=== PATIENT | female | born 1940 | race Hispanic/Latino ===

== ENCOUNTER 2017-07-17 06:32 | Day surgery (SDC) | payer OTHER ==
[~2017-07-17] VITALS: Ht 149.9 cm; Wt 62.3 kg
[2017-07-17 07:05] VITALS: BP 112/58
[2017-07-17 07:05] LABS: INR 1.09 (0.85-1.15); PROTHROMBIN TIME 11.4 SEC (9.6-11.6)
[2017-07-17] MEDS ORDERED: CALC300T31 PO (07:38)
[2017-07-17] MEDS ORDERED: DIGO125T87 PO (07:38)
[2017-07-17] MEDS ORDERED: ATOR10TA69 PO (07:38)
[2017-07-17] MEDS ORDERED: FURO20TA4 PO (07:38)
[2017-07-17] MEDS ORDERED: PIOG30TA70 PO (07:38)
[2017-07-17] MEDS ORDERED: WARF4TAB41 PO (07:38)
[2017-07-17] MEDS ORDERED: SITA100T12 PO (07:38)
[2017-07-17] MEDS ORDERED: CARV12.511 PO (07:38)
[2017-07-17] MEDS ORDERED: PANT40TA PO (07:38)
[2017-07-17] MEDS ORDERED: ENOX100D4 SQ (07:38)
[2017-07-17] MEDS ORDERED: LISI-613 PO (07:38)
[2017-07-17] MEDS ORDERED: GLIP10TA9 PO (07:38)
[2017-07-17] MEDS ORDERED: METF-805 PO (07:38)
[2017-07-17] MEDS ORDERED: XALA2.5OS OD (07:38)
[2017-07-17] MEDS ORDERED: PROPOFOL 1000 MG/100 ML 100 ML IV ONE (09:14)
[2017-07-17 09:30] VITALS: BP 81/43
== END 2017-07-17 10:15 ==
LOC: ENDO 06:32 → DAH 06:32 → ENDO 10:15
PROVIDERS: ATTEND Internal Medicine Gastroenterology
DX: Z12.11 Encounter for screening for malignant neoplasm of colon (principal); D12.2 Benign neoplasm of ascending colon; D12.3 Benign neoplasm of transverse colon; K57.30 Diverticulosis of large intestine without perforation or abscess without bleeding; Z79.899 Other long term (current) drug therapy; K21.9 Gastro-esophageal reflux disease without esophagitis; I10 Essential (primary) hypertension; E78.5 Hyperlipidemia, unspecified; Z95.0 Presence of cardiac pacemaker; E11.9 Type 2 diabetes mellitus without complications; Z68.27 Body mass index [BMI] 27.0-27.9, adult; Z83.3 Family history of diabetes mellitus; Z79.01 Long term (current) use of anticoagulants
CPT/HCPCS: 36415; 45380; 45385; 82948 ×2; 85610; 88305; 93005; A4606; J2704

== ENCOUNTER 2018-04-30 05:35 | Day surgery (SDC) | payer OTHER ==
[2018-04-26 08:43] LABS: BASOPHILS % (AUTO) 0.4 % (0.0-5.0); HEMATOCRIT 33.8 % (36-48); LYMPHOCYTES % (AUTO) 17.3 % (21.0-51.0); MEAN CORPUSCULAR HEMOGLOBIN 30.7 pg (27.0-33.0); MEAN CORPUSCULAR HGB CONC 33.1 g/dL (32.0-36.0); MEAN CORPUSCULAR VOLUME 92.9 fL (79-99); MONOCYTES % (AUTO) 7.8 % (3.0-13.0); NEUTROPHILS % (AUTO) 72.5 % (40.0-77.0); PLATELET COUNT (AUTO) 228 K/uL (130-400); RED BLOOD CELL COUNT(AUTO) 3.64 MIL/uL (4.00-5.50); RED CELL DISTRIBUTION WIDTH 13.7 % (11.0-15.5); WHITE BLOOD COUNT (AUTO) 6.1 K/uL (4.8-10.8)
[2018-04-26 08:45] VITALS: BP 115/63
[2018-04-26 08:49] LABS: POTASSIUM 4.7 mmol/L (3.5-5.1)
[2018-04-26 09:05] LABS: INR 2.6 (0.85-1.15); PARTIAL THROMBOPLASTIN TIME 41.1 SEC (26.3-35.5); PROTHROMBIN TIME 26.8 SEC (9.6-11.6)
--- NOTE | 2018-04-29 10:45 | NUR ---
ABNORMAL LABS WILIAM BHANDARI NOTIFIED PT'S PT 26.8, INR 2.60, PTT 41.1. ORDERS TO REPEAT INR UPON ARRIVAL TO DAY PATIENT DOS.
[2018-04-30] VITALS (11 sets, daily range): BP systolic 108–118; BP diastolic 58–72
[~2018-04-30] VITALS: Ht 149.9 cm; Wt 61.7 kg
[~2018-04-30 05:35] MED LIST: ATOR10TA69 PO; BRIM10DR16 OP; CARV12.511 PO; CEFAZOLIN SODIUM 1 GM VIAL IVP SCH; DIGO125T87 PO; FERR-82 PO; FURO20TA4 PO; GLIP10TA9 PO; LISI-613 PO; METF-805 PO; PANT40TA PO; PIOG30TA70 PO; SITA100T12 PO; SODIUM CHLORIDE 0.9% 1000ML 1,000 ML IV SCH; WARF4TAB41 PO; XALA2.5OS OD
[2018-04-30 06:33] LABS: INR 1.23 (0.85-1.15); PROTHROMBIN TIME 12.9 SEC (9.6-11.6)
[2018-04-30] MEDS ORDERED: CEFAZOLIN SODIUM 1 GM VIAL ONE (07:15)
[2018-04-30] MEDS ORDERED: BUPIVACAINE/PF 0.25% 10ML VIAL IJ ONE (07:16)
[2018-04-30] MEDS ORDERED: LIDOCAINE HCL 1% MDV 50ML VIAL ONE (07:16)
[2018-04-30] MEDS ORDERED: MEPERIDINE-PF 25 MG/ML SYG ONE ×2 (07:32→07:48)
[2018-04-30] MEDS ORDERED: MIDAZOLAM HCL 1 MG/ML 2ML VIAL ONE ×2 (07:32→07:48)
[2018-04-30] MEDS ORDERED: ACETAMINOPHEN 325 MG TAB PO PRN (08:45)
[2018-04-30] MEDS ORDERED: ACETAMINOPHEN-CODEINE 300/30MG TAB PO PRN (08:45)
[2018-04-30] MEDS ORDERED: DEXTROSE 50%-WATER 50 ML DISP.SYRIN IV PRN (08:45)
[2018-04-30] MEDS ORDERED: GLUCAGON 1MG KIT 1 MG ML IM PRN (08:45)
[2018-04-30] MEDS ORDERED: INSULIN HUMULIN R 100 UNIT/ML 3ML SQ SCH (11:30)
[2018-04-30] MEDS ORDERED: CEFAZOLIN SODIUM 1 GM VIAL IVP SCH (13:45)
--- NOTE | 2018-04-30 14:00 | NUR ---
PRESSURE DRESSING REMOVED, MINIMAL DRAINAGE ON DRESSING. SITE SOFT LITTLE TENDERNESS. EDUCATION ON SITE CARE GIVEN.
== END 2018-04-30 14:15 | disposition home or self-care (01) ==
LOC: DAH 05:35
PROVIDERS: ATTEND Internal Medicine Cardiovascular Disease
DX: Z45.2 Encounter for adjustment and management of vascular access device (principal); I48.0 Paroxysmal atrial fibrillation; Z79.01 Long term (current) use of anticoagulants; E78.5 Hyperlipidemia, unspecified; E11.9 Type 2 diabetes mellitus without complications; Z98.890 Other specified postprocedural states; Z79.899 Other long term (current) drug therapy; Z90.710 Acquired absence of both cervix and uterus; I44.7 Left bundle-branch block, unspecified; I50.42 Chronic combined systolic (congestive) and diastolic (congestive) heart failure
CPT/HCPCS: 33264; 36415 ×2; 80048; 80162; 82948; 85025; 85610 ×2; 85730; 93005; A4606; C1882; J0690 ×2; J2175 ×2; J2250 ×2; J3490 ×2; J7030; 99156; 99157

== ENCOUNTER → 2021-12-26 | Outpatient (CLI) | payer OTHER ==
[~2021-12-26] MED LIST changes: -CEFAZOLIN SODIUM 1 GM VIAL IVP SCH; +DIGO125T71 PO; -DIGO125T87 PO; -LISI-613 PO; +LISI20TA24 PO; -METF-805 PO; +METF-890 PO; -SODIUM CHLORIDE 0.9% 1000ML 1,000 ML IV SCH
== END | disposition home or self-care (01) ==
LOC: LAB 09:06
PROVIDERS: ATTEND Physician Assistant
DX: I48.0 Paroxysmal atrial fibrillation (principal); E78.5 Hyperlipidemia, unspecified
CPT/HCPCS: 36415; 80162

== ENCOUNTER → 2022-07-03 | Outpatient (CLI) | payer OTHER ==
[~2022-07-03] MED LIST changes: +APIX2.5T PO; -ATOR10TA69 PO; +CALC500T13 PO; +GABA-529 PO; +LIPITOR PO; +METF-444 PO; -METF-890 PO; +MULT-1258 PO; -PIOG30TA70 PO; +VITAMIN PO; -WARF4TAB41 PO
[2022-07-03 12:46] LABS: CREATININE 1.2 mg/dL (0.5-1.5)
[2022-07-03 13:07] LABS: POTASSIUM 4.6 mmol/L (3.5-5.1)
== END | disposition home or self-care (01) ==
LOC: LAB 11:05
PROVIDERS: ATTEND Internal Medicine Cardiovascular Disease
DX: I42.0 Dilated cardiomyopathy (principal)
CPT/HCPCS: 36415; 80048

== ENCOUNTER → 2022-07-20 | Outpatient (CLI) | payer OTHER ==
[2022-07-20 12:15] LABS: CREATININE 1.1 mg/dL (0.5-1.5); POTASSIUM 4.1 mmol/L (3.5-5.1)
== END | disposition home or self-care (01) ==
LOC: LAB 10:18
PROVIDERS: ATTEND Internal Medicine Cardiovascular Disease
DX: I42.0 Dilated cardiomyopathy (principal)
CPT/HCPCS: 36415; 80048

== ENCOUNTER 2022-12-02 17:18 | Observation (INO) | payer OTHER ==
[~2022-12-02] VITALS: Ht 149.9 cm; Wt 54.3 kg
[2022-12-02 17:58] LABS: BASOPHILS # (AUTO) 0.03 K/uL (0.00-0.20); BASOPHILS % (AUTO) 0.5 % (0.0-5.0); EOSINOPHILS # (AUTO) 0.12 K/uL (0.00-0.70); EOSINOPHILS % (AUTO) 1.9 % (0.0-8.0); HEMATOCRIT 30.8 % (36-48); IMMATURE GRANULOCYTE ABSOLUTE 0.02 K/uL (0-1); LYMPHOCYTES # (AUTO) 1.6 K/uL (1.0-4.8); LYMPHOCYTES % (AUTO) 24.4 % (21.0-51.0); MEAN CORPUSCULAR HEMOGLOBIN 29.7 pg (27.0-33.0); MEAN CORPUSCULAR HGB CONC 32.1 g/dL (32.0-36.0); MEAN CORPUSCULAR VOLUME 92.5 fL (79-99); MONOCYTES # (AUTO) 0.7 K/uL (0.1-1.0); MONOCYTES % (AUTO) 10.5 % (3.0-13.0); NEUTROPHILS % (AUTO) 62.4 % (40.0-77.0); PLATELET COUNT (AUTO) 238 K/uL (130-400); RED BLOOD CELL COUNT(AUTO) 3.33 MIL/uL (4.00-5.50); RED CELL DISTRIBUTION WIDTH 13.5 % (11.0-15.5); WHITE BLOOD COUNT (AUTO) 6.4 K/uL (4.8-10.8)
[2022-12-02 18:05] LABS: POTASSIUM 4.3 mmol/L (3.5-5.1)
[2022-12-02 18:15] LABS: ALBUMIN 3.6 g/dL (3.5-5.0); BILIRUBIN,TOTAL 0.2 mg/dL (0.2-1.0); TOTAL PROTEIN, SERUM 7.2 g/dL (6.0-8.3)
[2022-12-02 18:21] LABS: B-TYPE NATRIURETIC PEPTIDE 680 pg/mL (0-100)
[2022-12-02 18:47] LABS: SARS-CoV-2, RNA, NAAT NEGATIVE SARS CoV-2 (NEGATIVE)
[2022-12-02 18:53] LABS: INFLUENZA TYPE A Negative For Type A (NEGATIVE); INFLUENZA TYPE B Negative For Type B (NEGATIVE)
[2022-12-02] MEDS ORDERED: IOHEXOL 350 MG/ML 100ML INFUS..BTL IV ONE (19:32)
[2022-12-02 21:02] LABS: APPEARANCE,URINE CLEAR (CLEAR); BILIRUBIN,URINE NEGATIVE (NEGATIVE); COLOR,URINE COLORLESS (YELLOW); GLUCOSE, URINE (UA) NEGATIVE (NEGATIVE); KETONES,URINE NEGATIVE (NEGATIVE); LEUKOCYTE ESTERASE ,URINE NEGATIVE Leu/uL (NEGATIVE); NITRATE,URINE NEGATIVE (NEGATIVE); OCCULT BLOOD,URINE NEGATIVE (NEGATIVE); PH,URINE 5.5 (5.0-8.0); PROTEIN,URINE NEGATIVE (NEGATIVE); UROBILINOGEN,URINE 0.2 mg/dL (0.2-1.0)
[2022-12-02 21:03] LABS: ADD UA MICROSCOPIC YES
[2022-12-02 21:05] LABS: RBC,URINE 0-1 /HPF (0-1); SQUAMOUS EPITHELIAL CELL,UR RARE /HPF (0-2)
[2022-12-02] MEDS ORDERED: FUROSEMIDE 20MG VIAL IV ONE (21:30)
[2022-12-02] MEDS: MAGNESIUM 2GM PREMIX 50ML 50 ML IV SCH (22:46)
[2022-12-02] MEDS ORDERED: HYDRALAZINE 20MG/ML VIAL IV PRN (23:00)
[2022-12-02] MEDS ORDERED: ACETAMINOPHEN 325 MG TAB PO PRN (23:00)
[2022-12-02] MEDS ORDERED: ALBUTEROL 0.083% 2.5 MG/3 ML INH IH PRN (23:00)
[2022-12-02] MEDS ORDERED: HYDROCODONE/ACETAMINOPHEN 5/325 MG TAB PO PRN (23:00)
[2022-12-02] MEDS ORDERED: LABETALOL 20MG SYG IV PRN (23:00)
[2022-12-02] MEDS ORDERED: ACETAMINOPHEN 650 MG SUPPOSITORY RC PRN (23:00)
[2022-12-02] MEDS ORDERED: ONDANSETRON 4MG INJ IVP PRN (23:00)
[2022-12-02] MEDS ORDERED: CLONIDINE HCL 0.1 MG TABLET PO PRN (23:00)
[2022-12-02] MEDS: FUROSEMIDE 40MG VIAL IV SCH (23:06)
[2022-12-02 23:29] LABS: CREATINE KINASE, TOTAL 39 U/L (21-232); MYOGLOBIN 42 ng/mL (10-92)
[2022-12-03] VITALS (8 sets, daily range): BP systolic 95–116; BP diastolic 50–64; PULSE 67–78; RESP 18–20; O2SAT 97–100
[2022-12-03] MEDS: MAGNESIUM 2GM PREMIX 50ML 50 ML IV SCH (00:32)
[2022-12-03] MEDS ORDERED: SACU1TAB PO (04:49)
[2022-12-03] MEDS ORDERED: CARV25TA PO (04:49)
[2022-12-03] MEDS ORDERED: PANT20TA18 PO (04:52)
[2022-12-03 04:57] LABS: HEMATOCRIT 28.5 % (36-48); MEAN CORPUSCULAR VOLUME 91.1 fL (79-99); RED BLOOD CELL COUNT(AUTO) 3.13 MIL/uL (4.00-5.50); RED CELL DISTRIBUTION WIDTH 13.6 % (11.0-15.5)
[2022-12-03 05:38] LABS: CREATININE 0.9 mg/dL (0.5-1.5); MAGNESIUM 1.6 mg/dL (1.80-2.40); PHOSPHORUS 2.5 mg/dL (2.5-4.9); POTASSIUM 3.7 mmol/L (3.5-5.1); THYROID STIMULATING HORMONE 1.13 uIU/mL (0.36-3.74)
[2022-12-03] MEDS: MAGNESIUM 2GM PREMIX 50ML 50 ML IV PRN ×2 (06:46→11:57)
[2022-12-03] MEDS: FAMOTIDINE 20MG TAB PO SCH ×2 (09:20→20:35)
[2022-12-03] MEDS: ENOXAPARIN SODIUM 30 MG/0.3 ML SQ SCH (09:21)
[2022-12-03] MEDS: FUROSEMIDE 40MG VIAL IV SCH (11:56)
[2022-12-03] MEDS ORDERED: POTASSIUM CHLORIDE 20MEQ/100ML 100 ML IV PRN (12:00)
[2022-12-03] MEDS ORDERED: POTASSIUM CHLORIDE 10% ELIXIR 20 MEQ/15 ML UDCUP PO PRN (12:00)
[2022-12-03] MEDS: KCL 20 MEQ ERTAB PO PRN ×2 (12:44→17:02)
[2022-12-03] MEDS ORDERED: CALCIUM CARB 500MG CHEW TAB PO PRN (17:00)
[2022-12-03] MEDS ORDERED: INSULIN HUMULIN R 100 UNIT/ML 3ML SQ SCH (21:00)
[2022-12-03] MEDS ORDERED: APIXABAN 2.5 MG TABLET PO ONE (21:07)
[2022-12-03] MEDS ORDERED: CARVEDILOL 25 MG TABLET PO ONE (21:08)
[2022-12-03] MEDS ORDERED: SACUBITRIL/VALSARTAN 1 EACH TABLET PO ONE (21:08)
[2022-12-03] MEDS ORDERED: GABAPENTIN 100 MG CAPSULE ONE (21:08)
[2022-12-03] MEDS: APIXABAN 2.5 MG TABLET PO SCH (21:10)
[2022-12-03] MEDS: SACUBITRIL/VALSARTAN 1 EACH TABLET PO SCH (21:10)
[2022-12-03] MEDS: GABAPENTIN 100 MG CAPSULE PO SCH (21:11)
[2022-12-03] MEDS: CARVEDILOL 25 MG TABLET PO SCH (21:15)
[2022-12-03] MEDS ORDERED: DEXTROSE 50%-WATER 50 ML DISP.SYRIN IV ONE (23:49)
[2022-12-04] MEDS ORDERED: GLUCAGON 1MG KIT 1 MG ML IM PRN (00:30)
[2022-12-04] MEDS ORDERED: DEXTROSE 50%-WATER 50 ML DISP.SYRIN IV PRN (00:30)
[2022-12-04 04:00] VITALS: BP 115/71; PULSE 76; RESP 19
[2022-12-04 05:17] LABS: HEMATOCRIT 31.4 % (36-48); MEAN CORPUSCULAR HGB CONC 32.2 g/dL (32.0-36.0); MEAN CORPUSCULAR VOLUME 93.2 fL (79-99); RED BLOOD CELL COUNT(AUTO) 3.37 MIL/uL (4.00-5.50); RED CELL DISTRIBUTION WIDTH 13.7 % (11.0-15.5)
[2022-12-04 05:18] LABS: CREATININE 1.2 mg/dL (0.5-1.5); POTASSIUM 4.8 mmol/L (3.5-5.1)
[2022-12-04] MEDS: INSULIN HUMULIN R 100 UNIT/ML 3ML SQ SCH ×3 (06:41→16:30)
[2022-12-04 07:45] VITALS: BP 125/82; PULSE 77; RESP 16
[2022-12-04] MEDS: FAMOTIDINE 20MG TAB PO SCH (08:48)
[2022-12-04] MEDS: ENOXAPARIN SODIUM 30 MG/0.3 ML SQ SCH (08:51)
[2022-12-04] MEDS ORDERED: VITAMIN PO SCH (09:00)
[2022-12-04] MEDS: GABAPENTIN 100 MG CAPSULE PO SCH (09:31)
[2022-12-04] MEDS: CARVEDILOL 25 MG TABLET PO SCH (09:33)
[2022-12-04] MEDS: APIXABAN 2.5 MG TABLET PO SCH (09:34)
[2022-12-04] MEDS: SACUBITRIL/VALSARTAN 1 EACH TABLET PO SCH (09:34)
[2022-12-04 11:00] VITALS: BP 120/61; PULSE 75; RESP 17
[2022-12-04 16:00] VITALS: BP 117/69; PULSE 76; RESP 16
[2022-12-04] MEDS ORDERED: FUROSEMIDE 20 MG TABLET PO STA (16:05)
[2022-12-04] MEDS ORDERED: FURO20TA4 PO (16:52)
== END 2022-12-04 18:55 | disposition home or self-care (01) ==
LOC: EDH 17:18 → EDHIP 22:45 → 3DH 23:17
PROVIDERS: ADMIT Internal Medicine Critical Care Medicine; ATTEND Internal Medicine Critical Care Medicine
DX: I11.0 Hypertensive heart disease with heart failure (principal); I50.43 Acute on chronic combined systolic (congestive) and diastolic (congestive) heart failure; Z20.822 Contact with and (suspected) exposure to COVID-19; I42.0 Dilated cardiomyopathy; J81.1 Chronic pulmonary edema; I27.20 Pulmonary hypertension, unspecified; I48.0 Paroxysmal atrial fibrillation; E83.42 Hypomagnesemia; E78.5 Hyperlipidemia, unspecified; E11.65 Type 2 diabetes mellitus with hyperglycemia; D64.9 Anemia, unspecified; K21.9 Gastro-esophageal reflux disease without esophagitis; Z79.01 Long term (current) use of anticoagulants; Z95.810 Presence of automatic (implantable) cardiac defibrillator; Z79.899 Other long term (current) drug therapy
CPT/HCPCS: 96376 ×2; 96375 ×2; 99285; 82550 ×3; 83735 ×2; 83874 ×3; 84484 ×4; 80053; 83880 ×3; 85025; 85378; 87804 ×2; 81001; 36415 ×3; 87635; 71045 ×3; 71270; 93005; 96372 ×2; 96365; 96366 ×2; 84443; 82947; 84100; 80048 ×2; 85027 ×2; 82948 ×9; 93306; 84145; 97161; 97116; G0378 ×42; C9803; J3475 ×3; J1940 ×3; Q9967; J7070; J1650 ×2

== ENCOUNTER → 2022-12-15 | Outpatient (CLI) | payer OTHER ==
[~2022-12-15] MED LIST changes: -BRIM10DR16 OP; -CARV12.511 PO; +CARV25TA PO; -DIGO125T71 PO; -FERR-82 PO; -GLIP10TA9 PO; -LISI20TA24 PO; +PANT20TA18 PO; -PANT40TA PO; +SACU1TAB PO; -SITA100T12 PO; -XALA2.5OS OD
[2022-12-15 12:55] LABS: CREATININE 1.2 mg/dL (0.5-1.5); MAGNESIUM 0.9 mg/dL (1.80-2.40); POTASSIUM 3.8 mmol/L (3.5-5.1)
== END | disposition home or self-care (01) ==
LOC: LAB 11:18
PROVIDERS: ATTEND Physician Assistant
DX: I50.22 Chronic systolic (congestive) heart failure (principal)
CPT/HCPCS: 36415; 80048; 83735; 83880

== ENCOUNTER → 2023-01-08 | Outpatient (CLI) | payer OTHER ==
[2023-01-08 16:25] LABS: CREATININE 1.1 mg/dL (0.5-1.5); DIGOXIN 0.75 ng/mL (0.50-2.00)
== END | disposition home or self-care (01) ==
LOC: LAB 11:58
PROVIDERS: ATTEND Internal Medicine Cardiovascular Disease
DX: I42.0 Dilated cardiomyopathy (principal); I48.0 Paroxysmal atrial fibrillation
CPT/HCPCS: 36415; 80048; 80162; 83735

== ENCOUNTER → 2023-01-16 | Outpatient (CLI) | payer OTHER ==
[2023-01-16 12:33] LABS: CREATININE 1.2 mg/dL (0.5-1.5); DIGOXIN 0.6 ng/mL (0.50-2.00); POTASSIUM 4.5 mmol/L (3.5-5.1)
== END | disposition home or self-care (01) ==
LOC: LAB 08:05
PROVIDERS: ATTEND Internal Medicine Cardiovascular Disease
DX: I50.22 Chronic systolic (congestive) heart failure (principal)
CPT/HCPCS: 36415; 80048; 80162; 83735

== ENCOUNTER 2023-01-19 14:33 | Emergency (ER) | payer OTHER ==
[~2023-01-19] VITALS: Ht 152.4 cm; Wt 54.4 kg
[2023-01-19 15:31] LABS: BASOPHILS # (AUTO) 0.01 K/uL (0.00-0.20); BASOPHILS % (AUTO) 0.2 % (0.0-5.0); EOSINOPHILS # (AUTO) 0.12 K/uL (0.00-0.70); EOSINOPHILS % (AUTO) 2.7 % (0.0-8.0); HEMATOCRIT 30.9 % (36-48); IMMATURE GRANULOCYTE ABSOLUTE 0.01 K/uL (0-1); LYMPHOCYTES # (AUTO) 1.2 K/uL (1.0-4.8); LYMPHOCYTES % (AUTO) 26.5 % (21.0-51.0); MEAN CORPUSCULAR HEMOGLOBIN 29.5 pg (27.0-33.0); MEAN CORPUSCULAR HGB CONC 32.7 g/dL (32.0-36.0); MEAN CORPUSCULAR VOLUME 90.4 fL (79-99); MONOCYTES # (AUTO) 0.5 K/uL (0.1-1.0); MONOCYTES % (AUTO) 10.2 % (3.0-13.0); NEUTROPHILS # (AUTO) 2.7 K/uL (1.8-7.7); NEUTROPHILS % (AUTO) 60.2 % (40.0-77.0); PLATELET COUNT (AUTO) 193 K/uL (130-400); RED BLOOD CELL COUNT(AUTO) 3.42 MIL/uL (4.00-5.50); WHITE BLOOD COUNT (AUTO) 4.4 K/uL (4.8-10.8)
[2023-01-19 15:39] LABS: CREATININE 1.3 mg/dL (0.5-1.5); POTASSIUM 4.6 mmol/L (3.5-5.1)
[2023-01-19 15:53] LABS: THYROID STIMULATING HORMONE 1.18 uIU/mL (0.36-3.74)
[2023-01-19] MEDS ORDERED: MAGNESIUM 2GM PREMIX 50ML 50 ML IV SCH (17:00)
[2023-01-19 19:07] VITALS: BP 103/45; PULSE 98; RESP 18; O2SAT 98
== END 2023-01-19 19:09 | disposition home or self-care (01) ==
LOC: EDH 14:33
DX: E83.42 Hypomagnesemia (principal); I11.0 Hypertensive heart disease with heart failure; I50.9 Heart failure, unspecified; E78.00 Pure hypercholesterolemia, unspecified; K21.9 Gastro-esophageal reflux disease without esophagitis; E11.65 Type 2 diabetes mellitus with hyperglycemia; Z79.01 Long term (current) use of anticoagulants; Z79.899 Other long term (current) drug therapy; Z95.810 Presence of automatic (implantable) cardiac defibrillator
CPT/HCPCS: 99284; 96365; 96366; 84443; 83735; 84484; 80048; 85025; 36415; 93005; J3475

== ENCOUNTER → 2023-01-22 | Outpatient (CLI) | payer OTHER ==
[2023-01-22 16:28] LABS: CREATININE 1.3 mg/dL (0.5-1.5); DIGOXIN 1.04 ng/mL (0.50-2.00); MAGNESIUM 1.5 mg/dL (1.80-2.40); POTASSIUM 4.5 mmol/L (3.5-5.1)
== END | disposition home or self-care (01) ==
LOC: LAB 12:20
PROVIDERS: ATTEND Internal Medicine Cardiovascular Disease
DX: I50.22 Chronic systolic (congestive) heart failure (principal)
CPT/HCPCS: 36415; 80048; 80162; 83735

== ENCOUNTER → 2023-01-29 | Outpatient (CLI) | payer OTHER ==
[2023-01-29 16:27] LABS: CREATININE 1.1 mg/dL (0.5-1.5); MAGNESIUM 1.1 mg/dL (1.80-2.40); POTASSIUM 4.4 mmol/L (3.5-5.1)
== END | disposition home or self-care (01) ==
LOC: LAB 11:16
PROVIDERS: ATTEND Physician Assistant
DX: I42.0 Dilated cardiomyopathy (principal); I48.0 Paroxysmal atrial fibrillation; I50.22 Chronic systolic (congestive) heart failure
CPT/HCPCS: 36415; 80048; 83735

== ENCOUNTER → 2023-04-02 | Outpatient (CLI) | payer OTHER ==
[2023-04-02 16:41] LABS: CREATININE 1.5 mg/dL (0.5-1.5)
== END | disposition home or self-care (01) ==
LOC: LAB 11:50
PROVIDERS: ATTEND Internal Medicine Cardiovascular Disease
DX: I50.22 Chronic systolic (congestive) heart failure (principal)
CPT/HCPCS: 36415; 80048; 83735

== ENCOUNTER 2024-04-20 07:19 | Emergency (ER) | payer OTHER ==
[~2024-04-20] VITALS: Ht 149.9 cm; Wt 53.5 kg
[2024-04-20 08:30] LABS: BASOPHILS # (AUTO) 0.02 K/uL (0.00-0.20); BASOPHILS % (AUTO) 0.5 % (0.0-5.0); EOSINOPHILS # (AUTO) 0.12 K/uL (0.00-0.70); LYMPHOCYTES % (AUTO) 25.6 % (21.0-51.0); MEAN CORPUSCULAR HEMOGLOBIN 26.9 pg (27.0-33.0); MEAN CORPUSCULAR HGB CONC 30.6 g/dL (32.0-36.0); MONOCYTES # (AUTO) 0.4 K/uL (0.1-1.0); NEUTROPHILS # (AUTO) 2.5 K/uL (1.8-7.7); NEUTROPHILS % (AUTO) 61.9 % (40.0-77.0); PLATELET COUNT (AUTO) 181 K/uL (130-400); RED BLOOD CELL COUNT(AUTO) 3.75 MIL/uL (4.00-5.50); RED CELL DISTRIBUTION WIDTH 20.5 % (11.0-15.5)
[2024-04-20 08:40] LABS: CREATININE 1.3 mg/dL (0.5-1.0); POTASSIUM 4.5 mmol/L (3.5-5.1)
--- NOTE | 2024-04-20 09:47 | HMCIMG ---
RIGHT ANKLE RADIOGRAPHS - 2 VIEWS INDICATION: Pain COMPARISON: None FINDINGS: AP, lateral views. No acute fracture or subluxation identified. No evidence for periosteal reaction, cortical erosive changes, or any abnormal subperiosteal bone resorption. The talar dome is intact. Ankle mortise and tibial plafond are well maintained. No significant joint effusion is present. Subcentimeter plantar calcaneal spur. Extensive arterial wall calcific plaque. IMPRESSION: No evidence for osteomyelitis.
--- NOTE | 2024-04-20 10:22 | ERN ---
ED Note History of Present Illness Stated Complaint: RIGHT FOOT PAIN Chief Complaint: FOOT INJURY/PAIN Time Seen by MD: 07:20 Dictation: 83-year-old female presents to the ED for evaluation of right foot pain onset two weeks ago. Patient reports redness, but denies any fever, chills or any other associated symptoms at this time. Patient was seen by PCP and placed on Keflex but states she has not seen any improvement. Allergies: Coded Allergies: No Known Drug Allergies (Verified Allergy, 12/20/12) Home Meds Active Scripts Clindamycin HCl (Clindamycin HCl) 300 Mg Capsule, 1 CAP PO QID for 7 Days, #28 CAP 0 Refills Prov:JUDAH CLARKE MD 04/20/24 Furosemide (Furosemide) 20 Mg Tablet, 20 MG PO DAILY for 30 Days, #30 TAB Prov:GABY STREET 12/04/22 Reported Medications Pantoprazole Sodium (Pantoprazole Sodium) 20 Mg Tablet.dr, 20 MG PO DAILY, TAB 12/03/22 Sacubitril/Valsartan (Entresto 24 mg-26 mg Tablet) 1 Each Tablet, 1 EACH PO BID, TAB 12/03/22 Carvedilol (Carvedilol) 25 Mg Tablet, 25 MG PO BID, TAB 12/03/22 Gabapentin (Gabapentin) 100 Mg Capsule, 100 MG PO BID, CAP 06/23/22 Multivits-Min/FA/Lycopene/Lut (Centrum Silver Tablet) 1 Each Tablet, 1 EACH PO AM, TAB 06/23/22 Apixaban (Eliquis) 2.5 Mg Tablet, 2.5 MG PO BID, TAB 06/23/22 [Vitamin 100] No Conflict Check, 1 TAB PO DAILY 06/23/22 Calcium Carbonate (Tums 500 mg Chew Tab) 1 Tab Tab.chew, 750 TAB PO DAILY PRN for HEARTBURN, TAB.CHEW 06/23/22 [Lipitor] No Conflict Check, PO HS 06/23/22 Metformin HCl (Metformin HCl) 500 Mg Tablet, 2 TAB PO TIDAC, TAB 06/23/22 Past Medical History Past Medical History: CHF, Diabetes-Type II, GERD, High Cholesterol, Heart Disease, Hypertension Surgical History: Pacer/AICD Social History: Lives with family, Other Review of System Dictation Constitutional: Negative for fever,chills, and weight loss Eyes: Negative for injury, pain,redness, and discharge ENT: Negative for injury,pain or swelling Cardiovascular: Negative for chest pain, palpitations, and edema Respiratory: Negative for shortness of breath, cough, and wheezing, Abdomen/GI: Negative for abdominal pain, nausea, vomiting, diarrhea, and constipation Back: Negative for injury and pain : Negative for injury, bleeding and discharge MS/Extremity: Positive for right foot pain, erythema Skin: Negative for rash, and discoloration Neuro: Negative for headache, weakness, numbness, tingling, and seizure Psych: Negative for suicide ideation, homicidal ideation, and hallucinations Initial Vital Sign VS Vital Signs Date Time Temp Pulse Resp B/P (MAP) Pulse Ox O2 Delivery O2 Flow Rate FiO2 04/20/24 07:20 97.5 81 16 132/80 100 Room Air* 0 21 Physical Exam Dictation General: awake, alert, NAD Head/Face: Normocephalic, atraumatic Eyes: PERRL, EOMI, vision at baseline ENT: oral cavity clear, TMs clear, no signs of infection Neck: Trachea midline, supple, no nuchal rigidity Cardiovascular: RRR, normal S1/S2, No MRGs, no JVD Respiratory: CTAB, no respiratory distress, No rales or wheezes Abdomen: Soft, non-tender, non-distended, normal bowel sounds, no guarding or rebound. Skin: Warm, dry, normal turgor, no rash MS/Extremity: Pulses equal, neurovascular intact, right lateral ankle erythema, skin lesion, no purulent drainage Neuro: COAx4, GCS 15, strength 5/5, CN 2-12 intact, normal cerebellar exam, normal gait, Psych: Normal behavior, mood, and affect normal Results (Laboratory/Radiology) Laboratory/Radiology Laboratory Tests Test 04/20/24 08:23 White Blood Count 4.0 K/uL (4.8-10.8) L Red Blood Count 3.75 MIL/uL (4.00-5.50) L Hemoglobin 10.1 g/dL (12.0-16.0) L Hematocrit 33.0 % (36-48) L Mean Corpuscular Volume 88.0 fL (79-99) Mean Corpuscular Hemoglobin 26.9 pg (27.0-33.0) L Mean Corpuscular Hemoglobin Concent 30.6 g/dL (32.0-36.0) L Red Cell Distribution Width 20.5 % (11.0-15.5) H Platelet Count 181 K/uL (130-400) Mean Platelet Volume 10.4 fL (7.5-10.5) Immature Granulocyte % (Auto) 0.0 % (0-1) Neutrophils (%) (Auto) 61.9 % (40.0-77.0) Lymphocytes (%) (Auto) 25.6 % (21.0-51.0) Monocytes (%) (Auto) 9.0 % (3.0-13.0) Eosinophils (%) (Auto) 3.0 % (0.0-8.0) Basophils (%) (Auto) 0.5 % (0.0-5.0) Neutrophils # (Auto) 2.5 K/uL (1.8-7.7) Lymphocytes # (Auto) 1.0 K/uL (1.0-4.8) Monocytes # (Auto) 0.4 K/uL (0.1-1.0) Eosinophils # (Auto) 0.12 K/uL (0.00-0.70) Basophils # (Auto) 0.02 K/uL (0.00-0.20) Absolute Immature Granulocyte (auto 0.00 K/uL (0-1) Nucleated Red Blood Cells 0.0 % (0.0-0.19) Red Blood Cell Morphology See comments Sodium Level 140 mmol/L (136-145) Potassium Level 4.5 mmol/L (3.5-5.1) Chloride Level 106 mmol/L (101-111) Carbon Dioxide Level 29 mmol/L (21-32) Blood Urea Nitrogen 31 mg/dL (7-18) H Creatinine 1.3 mg/dL (0.5-1.0) H Glomerular Filtration Rate Calc 40 mL/min (>90) Random Glucose 145 mg/dL (70-105) H Total Calcium 9.3 mg/dL (8.5-10.1) Labs Reviewed?: Yes ED Course ED Course Orders Procedure Category Date Status Time Ankle 2vws Rt RAD 04/20/24 Resulted 07:49 Basic Metabolic Panel LAB 04/20/24 Complete 07:49 Cbc With Differential LAB 04/20/24 Complete 07:49 Vital Signs Date Time Temp Pulse Resp B/P (MAP) Pulse Ox O2 Delivery O2 Flow Rate FiO2 04/20/24 10:34 98.8 88 18 134/69 99 Room Air* 0 21 04/20/24 09:23 98.8 84 18 131/77 99 Room Air* 0 21 04/20/24 07:20 97.5 81 16 132/80 100 Room Air 04/20/24 07:20 97.5 81 16 132/80 100 Room Air* 0 21 Medical Decision Making MDM MDM: Differential diagnosis: Cellulitis, ankle pain Risk of complication and/or morbidity or mortality of patient management: None Medications-Per medication reconciliation Need for emergency major/minor surgery: No There are no social concerns with this patient. Prescription drug management Prescriptions will include symptomatic care I independently interpreted the test that were performed, results were reviewed by me and considered findings on radiology if ordered. Medical management and examination interpretation discussions were had by me with other qualified healthcare professionals as indicated for the patient's care. DX & DISP Disposition: Discharge Departure Impression: Primary Impression: Cellulitis of right ankle Condition: Stable Scripts Clindamycin HCl (Clindamycin HCl) 300 Mg Capsule 1 CAP PO QID for 7 Days, #28 CAP 0 Refills Prov: JUDAH CLARKE MD 04/20/24 Referrals: PERICO JEAN MD (PCP) UJDAH CLARKE MD Apr 20, 2024 10:22
[2024-04-20] MEDS ORDERED: CLIN-141 PO (10:27)
[2024-04-20 10:34] VITALS: BP 134/69; PULSE 88; RESP 18; TEMP 98.7; O2SAT 99
== END 2024-04-20 10:39 | disposition home or self-care (01) ==
LOC: EDH 07:19
DX: L03.115 Cellulitis of right lower limb (principal); E11.9 Type 2 diabetes mellitus without complications; E78.00 Pure hypercholesterolemia, unspecified; I11.0 Hypertensive heart disease with heart failure; I50.9 Heart failure, unspecified; K21.9 Gastro-esophageal reflux disease without esophagitis; Z79.01 Long term (current) use of anticoagulants; Z79.899 Other long term (current) drug therapy; Z95.810 Presence of automatic (implantable) cardiac defibrillator
CPT/HCPCS: 36415; 73600; 80048; 85025; 99284

== ENCOUNTER 2025-03-05 09:40 | Day surgery (SDC) | payer OTHER ==
[2025-03-03 14:19] LABS: IMMATURE GRANULOCYTE ABSOLUTE 0.02 K/uL (0-1); NUCLEATED RED BLOOD CELLS 0.0 % (0.0-0.19); PLATELET COUNT (AUTO) 175 K/uL (130-400); RED BLOOD CELL COUNT(AUTO) 3.90 MIL/uL (4.00-5.50); RED CELL DISTRIBUTION WIDTH 14.9 % (11.0-15.5); WHITE BLOOD COUNT (AUTO) 5.0 K/uL (4.8-10.8)
--- NOTE | 2025-03-03 14:25 | EKG ---
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
[2025-03-03 14:29] LABS: INR 1.15 (0.85-1.15)
[2025-03-03 14:31] LABS: CREATININE 1.3 mg/dL (0.5-1.0); GLOMERULAR FILTR. RATE CALC 40.0 mL/min (>90); GLUCOSE,RANDOM 194.0 mg/dL (70-105); SODIUM SERUM 140.0 mmol/L (136-145); UREA NITROGEN, BLOOD 27.0 mg/dL (7-18)
[2025-03-03 14:35] VITALS: BP 114/75; PULSE 78; RESP 18; TEMP 97.3
[2025-03-05] VITALS (8 sets, daily range): BP systolic 96–117; BP diastolic 49–76; PULSE 76; RESP 18; TEMP 97–97.9
[~2025-03-05] VITALS: Ht 149.9 cm; Wt 55.6 kg
[2025-03-05] MEDS ORDERED: SODIUM BICARB 50MEQ 50ML VIAL 50 ML ONE (13:13)
[2025-03-05] MEDS ORDERED: LIDOCAINE HCL 1% MDV 50ML VIAL ONE (13:14)
[2025-03-05] MEDS ORDERED: MIDAZOLAM HCL 1 MG/ML 2ML VIAL ONE ×2 (14:02→14:08)
[2025-03-05] MEDS ORDERED: BACITRACIN 1 EACH PACKET TP ONE (14:31)
--- NOTE | 2025-03-05 16:45 | NUR ---
PRESSURE DRESSING REMOVED LEFT UPPER CHEST DRESSING DRY INTACT NOTED WITH PINK DRY DRAINAGE AREA SOFT NONTENDER NO BRUISING NOTED NO SWELLING TO AREA WILL MONITOR
== END 2025-03-05 17:15 | disposition home or self-care (01) ==
LOC: DAH 09:40
PROVIDERS: ATTEND Internal Medicine Cardiovascular Disease
DX: Z45.02 Encounter for adjustment and management of automatic implantable cardiac defibrillator (principal); I42.8 Other cardiomyopathies; I48.21 Permanent atrial fibrillation; E11.22 Type 2 diabetes mellitus with diabetic chronic kidney disease; N18.30 Chronic kidney disease, stage 3 unspecified; E78.5 Hyperlipidemia, unspecified; I50.9 Heart failure, unspecified; Z82.49 Family history of ischemic heart disease and other diseases of the circulatory system; Z79.899 Other long term (current) drug therapy; Z98.890 Other specified postprocedural states
CPT/HCPCS: 80048; 85025; 85610; 85730; 36415; 93005; 99156; 99157 ×3; 33264; 82948; A4223 ×3; C1882; J3010; J0690; J0665; J3490 ×2; J2250 ×2; A4215; A4222; A4221; A4663; A4216; A4606